=== PATIENT | female | born 1980 | race Caucasian/White ===

== ENCOUNTER 2018-02-03 18:19 | Emergency (ER) | payer SELFPAY, OTHER | END 2018-02-03 20:25 | disposition left against medical advice (07) | LOC: FTE 18:19 | DX: Z53.21 Procedure and treatment not carried out due to patient leaving prior to being seen by health care provider (principal) ==

== ENCOUNTER 2019-03-11 16:16 | Emergency (ER) | payer SELFPAY | END 2019-03-11 18:25 | disposition left against medical advice (07) | LOC: FTE 16:16 | DX: Z53.21 Procedure and treatment not carried out due to patient leaving prior to being seen by health care provider (principal) ==